=== PATIENT | male | born 1990 | race African-American/Black ===

== ENCOUNTER 2018-10-27 14:03 | Emergency (ER) | payer MEDICAID, SELFPAY ==
--- NOTE | 2018-10-27 14:45 | RAD ---
LEFT FOOT 3 VIEWS: Date: 10/27/18 HISTORY: Patient stepped on a nail a few days ago. FINDINGS: There are no signs of fracture. There are no radiopaque foreign bodies seen. Calcaneal spur at the Ac hilles tendon insertion is noted. I do not see any plain film evidence for osteomyelitis. IMPRESSION: No acute findings. POS: [facility]
[2018-10-27] MEDS ORDERED: Bacitracin Zinc 1 Packet ONE (14:57)
[2018-10-27] MEDS ORDERED: Adacel (T-DAP) 0.5 ML VIAL ONE (15:20)
== END 2018-10-27 15:27 | disposition home or self-care (01) ==
LOC: ERS 14:03
DX: S91.342A Puncture wound with foreign body, left foot, initial encounter (principal); W22.8XXA Striking against or struck by other objects, initial encounter; Y92.69 Other specified industrial and construction area as the place of occurrence of the external cause
CPT/HCPCS: 10120; 90471; 90715